=== PATIENT | female | born 1985 | race African-American/Black ===

== ENCOUNTER 2021-12-22 09:08 | Outpatient (CLI) | payer OTHER, SELFPAY ==
--- NOTE | 2021-12-22 09:19 | ECG_ITS ---
Measurements Intervals [place] Rate: 68 P: 63 IN: 176 QRS: -12 QRSD: 94 T: 7 QT: 394 QTc: 422 Interpretive Statements SINUS RHYTHM LEFT ATRIAL ENLARGEMENT POSSIBLE LEFT VENTRICULAR HYPERTROPHY Electronically Signed On 12-22-2021 11:43:32 CDT by Justice Gaitan M.D.
[2021-12-22 09:49] LABS: Anion Gap 9 mmol/L (8-16); Blood Urea Nitrogen 7 mg/dL (7-17); Carbon Dioxide 27 mmol/L (22-30); Chloride 104 mmol/L (98-107); Estimated Glomerular Filt Rate > 60; Glucose 97 mg/dL (65-110); Potassium 4.1 mmol/L (3.4-5.0); Sodium 140 mmol/L (137-145)
== END 2021-12-22 09:09 | disposition home or self-care (01) ==
LOC: ANHSURGERY 09:15
PROVIDERS: Anesthesiology; PCP Nurse Practitioner Family; Visit Provider Otolaryngology
DX: Z01.818 Encounter for other preprocedural examination (principal); I10 Essential (primary) hypertension; Z79.899 Other long term (current) drug therapy; I51.7 Cardiomegaly
CPT/HCPCS: 36415; 80048; 93005

== ENCOUNTER 2021-12-25 00:24 | Day surgery (SDC) | payer OTHER, SELFPAY ==
[2021-12-16 11:54] VITALS: BMI 35.9
--- NOTE | 2021-12-16 12:03 | PC.NURSE ---
Report to the Outpatient Waiting Room, entrance under the green pavilion located off [facility], at time 8:30 on date 12/25/21. OR Time: 10:30. - You and your visitor will be asked to self-screen and do not enter if you have any COVID symptoms. - Only one visitor and NO children visitors are allowed at this time. - The patient visitor is requested to leave or wait in car when not with patient due to restrictions. - A mask is required within the hospital. Patients may have clear liquids (water, carbonated beverages, clear teas, apple juice) until 3 hours prior to surgery (7:30) with a maximum of 20 ounces. - No food from midnight until time of surgery Take the following medications with a SIP of water the morning of surgery: AMLODIPINE Medications to discontinue per physician: N/A Date to take last dose: N/A Please no make-up, nail tajik, hairspray, perfume, deodorant, or body powder the day of surgery. No jewelry (including any body piercings) or valuables the day of surgery, leave them at home. Please take a shower or bath the night before, or the morning of, surgery with an antibacterial soap. Wear comfortable, loose fitting clothing. - Jewelry must be removed prior to entering the operating room. Rings and piercings that are not removed may be cut off. - The hospital will not accept responsibility for valuables. - Please leave all valuables, including medications, at home the day of surgery. If you are going home after surgery, a licensed class b driver must drive you home. - NO public transportation without another adult. - We recommend that an adult stay with you for 24 hours following discharge. - We also recommend that you do not drive, make important decision, drink alcoholic beverages, or take any drugs that were not prescribed by your health care provider for at least 24 hours after your discharge time. Follow any additional instructions given to you from your surgeon. If you or anyone in your household have experienced Covid symptoms in the past week, please notify your surgeon or the nurse liaison at the phone number below for possible testing. Telephone instructions given to PT - STANISLAW CHEN and asked if any additional questions and then verbalized understanding. Patient advised to call surgeon office or pre surgery nurse liaison [phone] if any additional questions.
--- NOTE | 2021-12-24 07:59 | P.HP_ITS ---
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 Additional living arrangements comments: CHILDREN Spiritual care concerns: No Meds Home Medications and Allergies Home Medications Medication Instructions Recorded Confirmed Type amlodipine 2.5 mg tablet 2.5 mg PO DAILY 08/06/21 12/16/21 History chlorthalidone 25 mg tablet 25 mg PO DAILY 08/06/21 12/16/21 History Allergies Allergy/AdvReac Type Severity Reaction Status Date / Time No Known Allergies Allergy Verified 12/16/21 11:53 Exam Narrative: chronic appearing tonsils Assessment and Plan Assessment and plan (1) Pharyngitis: Code(s): J02.9 - Acute pharyngitis, unspecified Status: Acute Assessment and Plan: plan OR tonsillectomy risks discussed including bleeding infection damage to surrounding structures numbness pain of any structure involved surgery any structure above the clavicles coughing ear pain abnormal appearance halitosis severe pain necessitating the use of narcotics damage to any structure during the induction and maintenance of anesthesia. (2) Recurrent tonsillitis: Code(s): J03.91 - Acute recurrent tonsillitis, unspecified Status: Acute
[2021-12-25] VITALS (11 sets, daily range): BP systolic 118–147; BP diastolic 77–100; PULSE 63–80; RESP 10–20; TEMP 36.6–37; O2SAT 96–100
--- NOTE | 2021-12-25 07:07 | WPDHPUPDATE1 ---
History and Physical Update Update Date/Time: 12/25/21 07:07 History and Physical has been reviewed, including an updated exam of the patient. There are NO changes in the patient's condition. Risks, benefits, and alternatives have been discussed and questions answered. Patient agrees to proceed with procedure.
[2021-12-25] MEDS: ACETAMINOPHEN 500 MG TABLET 1000 MG PO (08:10)
[2021-12-25] MEDS: LACTATED RINGERS 1,000 ML 30 ML IV CONT ×2 (08:10→10:35)
--- NOTE | 2021-12-25 08:47 | P.PNAN_ITS ---
Anes - Initial Pre Proc Eval Procedure: Operation Date: 12/25/21 10:30 Proposed Procedures p Tonsillectomy - Misael Hernández MD Date/Time: 12/25/21 08:47 Surgeon: Misael Hernández MD Pre Op Diagnosis: Recurrent Tonsillitis Patient Data Age: 36 Gender: F Height: 1.63 m Weight: 91.6 kg Last Vital Signs Temp 37.0 C 12/25/21 08:32 Pulse 75 12/25/21 08:32 Resp 20 12/25/21 08:32 BP 144/87 H 12/25/21 08:32 Pulse Ox 100 12/25/21 08:32 O2 Del Method Room Air 12/25/21 08:32 Allergies Allergy/AdvReac Type Severity Reaction Status Date / Time No Known Allergies Allergy Verified 12/16/21 11:53 Home Medications Medication Instructions Recorded Confirmed Type amlodipine 2.5 mg tablet 2.5 mg PO DAILY 08/06/21 12/16/21 History chlorthalidone 25 mg tablet 25 mg PO DAILY 08/06/21 12/16/21 History Patient hx anesthesia problems: none Family hx anesthesia problems: none Results Review: All pre-operative results and documents have been reviewed as part of the pre- operative evaluation. 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 Informed Consent: The patient's anesthetic plan and its attendant risks and benefits were discussed with the patient/family/POA. Questions were solicited and answers provided to the satisfaction of the patient/family/POA.
[2021-12-25] MEDS: ceFAZolin 2 GM/D5W 50 ML 2 GM/50 ML BAG IVPB (08:58)
[2021-12-25] MEDS: fentaNYL CITRATE INJ (*CRX) 100 MCG/2 ML VIAL 25 MCG IV PUSH ×5 (10:10→10:57)
--- NOTE | 2021-12-25 10:16 | P.OP_ITS ---
Procedure Note - Detailed Date of Procedure 12/25/21 Pre-op Diagnosis Recurrent Tonsillitis Post-op Diagnosis Same Procedure Performed Tonsillar Surgeon Misael Hernández MD Anesthesia General Indications See above Findings Endophytic severely scarred tonsils cryptic mild excess bleeding from the left side total blood loss about 20 cc Description of Procedure Patient identified consent verified. Patient brought operating room. Time-out performed. General anesthesia induced. Endotracheal tube was secured airway. Patient prepped draped bed rotated 2nd time-out performed McIvor mouth gag inserted to see tonsils described above. With right dissected extracapsular plane Bovie electrocautery at a setting of 10 any bleeding controlled with suction Bovie electrocautery at a setting of 12. At this time as noted the endotracheal tube was difficult to manipulate and an air leak was noted I performed direct laryngoscopy noted that the endotracheal tube was actually sitting above the glottis. Cuff was deflated hammer adjuster confirmed that I had reinserted the tube correctly. Left dissected extracapsular plane setting of 10 with Bovie electrocautery. Excess bleeding was noted this was controlled with Bovie electrocautery suction at a setting of 12 in 15. McIvor mouth gag was lowered in between tonsillectomy in her tonsils I should say, as well as after and reopened to reveal no further bleeding. This marked end of the procedure. McIvor mouth gag removed. I performed all dictated portions. Total blood loss 20 cc or less. No complications. Care the patient given back to Anesthesiology. Patient taken to PACU. Estimated Blood Loss -20.0 Drains No Packing No Pathology Yes Complications No immediate complications Condition Stable Disposition PACU
[2021-12-25] MEDS: ONDANSETRON INJ 4 MG/2 ML VIAL IV PUSH (11:25)
[2021-12-25] MEDS: diphenhydrAMINE HCl INJ 50 MG/ML VIAL 25 MG IV PUSH (13:00)
[2021-12-25] MEDS: SCOPOLAMINE 1.5 MG PATCH TRANSDERM (13:12)
== END 2021-12-25 13:25 | disposition home or self-care (01) ==
PROVIDERS: PCP Nurse Practitioner Family; Visit Provider Otolaryngology
PROC: (CPT 42826; principal; 2021-12-25 10:30)
DX: J35.1 Hypertrophy of tonsils (principal); I10 Essential (primary) hypertension; E66.9 Obesity, unspecified; Z68.34 Body mass index [BMI] 34.0-34.9, adult
CPT/HCPCS: 42826; 88302; A9270; J0330; J0690; J1100; J1200; J2250; J2405; J2704; J3010; J7120